=== PATIENT | female | born 2000 | race Caucasian/White ===

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

== ENCOUNTER 2020-01-24 11:59 | Emergency (ER) | payer OTHER ==
[2020-01-24 12:11] VITALS: BP 124/83; RESP 18; TEMP 99.1
--- NOTE | 2020-01-24 13:47 | ED ---
General Adult HPI - General Chief complaint: Skin/Abscess/Foreign Body Stated complaint: back pain Time Seen by Provider: 01/24/20 12:44 Source: patient, family, RN notes reviewed Mode of arrival: ambulatory Limitations: no limitations - History of Present Illness Initial comments: 19-year-old female presents to the emergency room for possible abscess of the left side of the buttock. Patient states it is painful to apply pressure to. She denies fevers or chills. Patient reports her uncle has had a history of pilonidal cyst. Patient denies any history herself.Patient has no other complaints at this time including shortness of breath, chest pain, abdominal pain, nausea or vomiting, headache, or visual changes. - Related Data Home Medications Medication Instructions Recorded Confirmed Acetaminophen Tab [Tylenol Tab] 1,000 mg PO Q6HR PRN 01/24/20 01/24/20 Previous Rx's Medication Instructions Recorded Sulfamethox-Tmp 800-160Mg [Bactrim 1 tab PO Q12HR #20 tab 01/24/20 DS 800-160 mg] Allergies Allergy/AdvReac Type Severity Reaction Status Date / Time azithromycin Allergy Rash/Hives Verified 01/24/20 13:41 clindamycin Allergy Rash/Hives Verified 01/24/20 13:41 doxycycline Allergy Rash/Hives Verified 01/24/20 13:41 Penicillins Allergy Rash/Hives Verified 01/24/20 13:41 Review of Systems ROS Statement: Those systems with pertinent positive or pertinent negative responses have been documented in the HPI. ROS Other: All systems not noted in ROS Statement are negative. Past Medical History Past Medical History: No Reported History Past Surgical History: No Surgical Hx Reported Smoking Status: Never smoker Past Alcohol Use History: None Reported Past Drug Use History: None Reported General Exam Limitations: no limitations General appearance: alert, in no apparent distress Head exam: Present: atraumatic, normocephalic, normal inspection Eye exam: Present: normal appearance, PERRL, EOMI. Absent: scleral icterus, conjunctival injection, periorbital swelling ENT exam: Present: normal exam, mucous membranes moist Neck exam: Present: normal inspection, full ROM. Absent: tenderness, meningismus, lymphadenopathy Respiratory exam: Present: normal lung sounds bilaterally. Absent: respiratory distress, wheezes, rales, rhonchi, stridor Cardiovascular Exam: Present: regular rate, normal rhythm, normal heart sounds. Absent: systolic murmur, diastolic murmur, rubs, gallop, clicks GI/Abdominal exam: Present: soft, normal bowel sounds. Absent: distended, tenderness, guarding, rebound, rigid Rectal exam: Present: other (Patient has a small erythematous area of induration noted to the left superior gluteal cleft.) Course Vital Signs 01/24/20 12:07 Temperature 99.1 F Pulse Rate 121 H Respiratory 18 Rate Blood Pressure 124/83 O2 Sat by Pulse 97 Oximetry Procedures - Incision & Drainage Consent Obtained: verbal consent Site: buttock Needle Aspiration Performed?: Yes I&D Drainage Obtained: Blood Patient Tolerated Procedure: well, no complications Medical Decision Making - Medical Decision Making Physical exam revealed an small 1 cm x 1 cm indurated area of erythema on the superior left gluteal cleft. There is no fluctuance at this time. I discussed it was possible that abscess is too early to drain however patient is agreeable to attempt drainage. I did have a timeout performed and consent signed. The area was cleaned with iodine. 18-gauge needle was used to incise the area. There is no purulent drainage. Patient was started on Bactrim as she has several other ALLERGIES. She denies chance of . She will return here for any worsening symptoms which were discussed in depth with her. In the meantime she will use warm compresses which was discussed. Disposition Clinical Impression: Abscess Disposition: HOME SELF-CARE Condition: Good Instructions (If sedation given, give patient instructions): Abscess (ED) Additional Instructions: Please apply warm compresses for 20 minutes every hour. Taken antibiotic as directed. Follow-up with your doctor for recheck. If you have worsening symptoms return here to the emergency room. Prescriptions: Sulfamethox-Tmp 800-160Mg [Bactrim DS 800-160 mg] 1 tab PO Q12HR #20 tab Is patient prescribed a controlled substance at d/c from ED?: No Referrals: Ratna Calzada MD [REFERRING] - 1-2 days Time of Disposition: 13:46
[2020-01-24 14:31] VITALS: PULSE 96
== END 2020-01-24 14:00 | disposition home or self-care (01) ==
LOC: EC 11:59
DX: L02.31 Cutaneous abscess of buttock (principal); Z88.0 Allergy status to penicillin; Z88.1 Allergy status to other antibiotic agents
CPT/HCPCS: 10060; 99283

== ENCOUNTER 2020-01-26 13:09 | Emergency (ER) | payer OTHER ==
[2020-01-26] MEDS ORDERED: LIDOCAINE 1% INJ 10MG/ML (20 ML MDV) SQ STA (13:57)
--- NOTE | 2020-01-26 14:26 | ED ---
General Adult HPI - General Chief complaint: Skin/Abscess/Foreign Body Stated complaint: Revisit Back Abscess Time Seen by Provider: 01/26/20 13:19 Source: patient, RN notes reviewed, old records reviewed Mode of arrival: ambulatory Limitations: no limitations - History of Present Illness Initial comments: 19-year-old female patient the ED for evaluation of possible abscess to pilonidal region. Patient reports that she's been having pain for the last 3 days. Patient was in this emergency department 2 days ago and a drainage was attempted however is no purulent drainage obtained. Patient reports that since then she has been having worsening discomfort with sitting. Denies any fevers. Denies any chance of . Denies any other acute complaints. Patient has been doing warm compresses. Systemic: Pt denies fatigue, fever/chills, rash. Pt denies weakness, night sweats, weight loss. Neuro: Pt denies headache, visual disturbances, syncope or pre-syncope. HEENT: Pt denies ocular discharge or irritation, otalgia, rhinorrhea, pharyngitis or notable lymphadenopathy. Cardiopulmonary: Pt denies chest pain, SOB, heart palpitations, dyspnea on exertion. Abdominal/GI: Pt denies abdominal pain, n/v/d. : Pt denies dysuria, burning w/ urination, frequency/urgency. Denies new onset urinary or bowel incontinence. MSK: Pt denies myalgia, loss of strength or function in extremities. Neuro: Pt denies new onset weakness, paresthesias. - Related Data Home Medications Medication Instructions Recorded Confirmed Acetaminophen Tab [Tylenol Tab] 1,000 mg PO Q6HR PRN 01/24/20 01/24/20 Previous Rx's Medication Instructions Recorded Fluconazole [Diflucan] 150 mg PO DAILY #1 tab 01/24/20 Sulfamethox-Tmp 800-160Mg [Bactrim 1 tab PO Q12HR #20 tab 01/24/20 DS 800-160 mg] Allergies Allergy/AdvReac Type Severity Reaction Status Date / Time azithromycin Allergy Rash/Hives Verified 01/26/20 13:14 doxycycline Allergy Rash/Hives Verified 01/26/20 13:14 Penicillins Allergy Rash/Hives Verified 01/26/20 13:14 Review of Systems ROS Statement: Those systems with pertinent positive or pertinent negative responses have been documented in the HPI. ROS Other: All systems not noted in ROS Statement are negative. Past Medical History Past Medical History: No Reported History History of Any Multi-Drug Resistant Organisms: None Reported Past Surgical History: No Surgical Hx Reported Past Psychological History: No Psychological Hx Reported Smoking Status: Never smoker Past Alcohol Use History: None Reported Past Drug Use History: None Reported General Exam - General Exam Comments Initial Comments: Constitutional: NAD, AOX3, Pt has pleasant affect. HEENT: NC/AT, trachea midline, neck supple, no lymphadenopathy. External ears appear normal, without discharge. Mucous membranes moist. Eyes PERRLA, EOM intact. There is no scleral icterus. No pallor noted. Cardiopulmonary: RRR, no murmurs, rubs or gallops, no JVD noted. Lungs CTAB in anterior and posterior castellon. No peripheral edema. Abdominal exam: Abdomen soft and non-distended. Abdomen non-tender to palpation in all 4 quadrants. Bowel sounds active in LLQ. No hepatosplenomegaly. No ecchymosis Neuro: CN II-XII grossly intact. No nuchal rigidity. MSK: 2x2 cm fluctuant abscess pilonidal region, at the superior glutral cleft left sided. Area with cleaned, incision and drainage displayed purulent drainage. No streaking, no rectal involvement. Chaperogned by ANALILIA Mendoza. Limitations: no limitations Course Vital Signs 01/26/20 13:10 Temperature 98.6 F Pulse Rate 129 H Respiratory 18 Rate Blood Pressure 113/79 O2 Sat by Pulse 98 Oximetry Procedures - [place] Protocol (Time Out) Procedure Performed:: Incision and Drainage Performing Provider: Cornell Clark Nurse: Eloy Judd Timeout Date: 01/26/20 (14:09) Patient Identification (2 identifiers required): Verbal, Arm Band, Name, Birthdate, Medical Record Number Patient/Legal Digital Archivist has Confirmed: Identity, Site, Procedure, Consent Site: coccyx Site Marked: Yes Site Verified With Patient/Guardian: Yes - Incision & Drainage Consent Obtained: verbal consent Indication: pilonidal abscess Size (cm): 2 Anesthetic Used: lidocaine 1% Amount (mLs): 2 I&D Cleaning Method: Chloroprep Sterile Field Used?: Yes Scalpel Used: #11 Irrigation Performed?: Yes I&D Drainage Obtained: Pus Culture Obtained?: Yes Patient Tolerated Procedure: well Medical Decision Making - Medical Decision Making 19-year-old female patient the ED for evaluation of possible abscess to pilonid al region. Patient reports that she's been having pain for the last 3 days. Patient was in this emergency department 2 days ago and a drainage was attempted however is no purulent drainage obtained. Patient reports that since then she has been having worsening discomfort with sitting. Denies any fevers. Denies any chance of . Denies any other acute complaints. Patient has been doing warm compresses. Pt VSS, afebrile. Physical exam displayed: 2x2 cm fluctuant abscess pilonidal region, at the superior glutral cleft left sided. Area with cleaned, incision and drainage displayed purulent drainage. Consent form and Tylenol were completed. Risks and benefits were discussed. Patient will continue on the Bactrim pending culture and will return to any worsening symptoms. Case discussed with Dr. Tillman. Disposition Clinical Impression: Pilonidal abscess Disposition: HOME SELF-CARE Condition: Stable Instructions (If sedation given, give patient instructions): Abscess (ED), Abscess Incision and Drainage (DC) Additional Instructions: Follow up with PCP tomorrow. Continue taking antibiotics. return to ED with any worsening symptoms. I will also provide you a surgical consult, Dr. Blackmon. Is patient prescribed a controlled substance at d/c from ED?: No Referrals: None,Stated [Primary Care Provider] - 1-2 days Isai Stearns [STAFF PHYSICIAN] - 1-2 days Ratna Calzada MD [REFERRING] - 1-2 days Candi Blackmon MD [STAFF PHYSICIAN] - 1-2 days
[2020-01-26 14:31] VITALS: BP 120/78; PULSE 98; RESP 20; TEMP 99
[2020-01-26] MEDS ORDERED: ACET/COD 300 MG/30 MG STARTER PACK 6 TAB BTL PO STA (14:36)
== END 2020-01-26 14:56 | disposition home or self-care (01) ==
LOC: EC 13:09
DX: L05.01 Pilonidal cyst with abscess (principal); Z88.0 Allergy status to penicillin; Z88.1 Allergy status to other antibiotic agents
CPT/HCPCS: 87070; 87205; 99283; 10080; J2001

== ENCOUNTER → 2020-04-06 | Outpatient (CLI) | payer OTHER ==
--- NOTE | 2020-04-06 17:30 | US ---
EXAMINATION TYPE: US pelvis complete transvag DATE OF EXAM: 04/06/2020 COMPARISON: NONE CLINICAL HISTORY: 19-year-old female N92.0 Excessive and frequent menstruation with reg. The cycles for months TECHNIQUE: TA/TV. Transabdominal sonographic images of the pelvis were acquired. Transvaginal sono graphic images were medically necessary to better assess the following anatomy: all structures Date of LMP: 03/29/2020 FINDINGS: EXAM MEASUREMENTS: Uterus: 6.7 x 3.8 x 4.4 cm Endometrial Stripe: 0.5 cm Right Ovary: 2.9 x 1.7 x 2.2 cm for a volume of 5.7 mL Left Ovary: 2.4 x 1.3 x 1.4 cm for a volume of 2.3 mL 1. Uterus: Anteverted and otherwise wnl 2. Endometrium: wnl 3. Right Ovary: Numerous small follicles, at least 14 are measured on one image. 4. Left Ovary: With follicular change. 5. Bilateral Adnexa: wnl 6. Posterior cul-de-sac: Small amount of fluid. IMPRESSION: 1. Follicular change in both ovaries. Neither ovary is particularly large in size but the right ovary has numerous small follicles, at least 14 measured on one image. Clinically correlate. 2. Small amount of cul-de-sac free fluid likely physiologic.
== END | disposition home or self-care (01) ==
LOC: RADUSWWP 15:34
PROVIDERS: ATTEND Obstetrics & Gynecology
DX: N83.8 Other noninflammatory disorders of ovary, fallopian tube and broad ligament (principal)
CPT/HCPCS: 76830; 76856

== ENCOUNTER 2020-12-27 01:59 | Emergency (ER) | payer OTHER ==
[2020-12-27 02:12] VITALS: TEMP 98.3
[2020-12-27] MEDS ORDERED: SODIUM CHLORIDE 0.9% 1,000 ML IV STA (02:18)
--- NOTE | 2020-12-27 02:19 | ED ---
Arrhythmia/Palpitations HPI - General Chief Complaint: Arrhythmia/Palpitations Stated Complaint: Heart palpitations Time Seen by Provider: 12/27/20 02:18 Source: patient, family, RN notes reviewed, old records reviewed Mode of arrival: ambulatory Limitations: no limitations - History of Present Illness Initial Comments: 's is a 20-year-old female to the emergency department ton[place]. Patient presents today for evaluation of elevated heart rate states she has history of arrhythmia also having palpitations. Heart beating in her chest. Chest pain. Patient is also having some eye pain to took some naproxen which did seem to help. Otherwise no recent travel history sick contacts. No change in medications denies drug or alcohol abuse patient does have history of POTS MD Complaint: rapid heart beat, "heart racing", palpitations -: hour(s) Context: occurred during rest Associated Symptoms: chest pain, nausea/vomiting, anxiety Treatments Prior to Arrival: other (none) - Related Data Home Medications Medication Instructions Recorded Confirmed Acetaminophen Tab [Tylenol Tab] 1,000 mg PO Q6HR PRN 01/24/20 01/24/20 Previous Rx's Medication Instructions Recorded Fluconazole [Diflucan] 150 mg PO DAILY #1 tab 01/24/20 Sulfamethox-Tmp 800-160Mg [Bactrim 1 tab PO Q12HR #20 tab 01/24/20 DS 800-160 mg] Allergies Allergy/AdvReac Type Severity Reaction Status Date / Time azithromycin Allergy Rash/Hives Verified 12/27/20 02:12 doxycycline Allergy Rash/Hives Verified 12/27/20 02:12 Penicillins Allergy Rash/Hives Verified 12/27/20 02:12 Review of Systems ROS Statement: Those systems with pertinent positive or pertinent negative responses have been documented in the HPI. ROS Other: All systems not noted in ROS Statement are negative. Past Medical History Past Medical History: Hyperlipidemia Additional Past Medical History / Comment(s): PCOS, heart palpitations, PTSD History of Any Multi-Drug Resistant Organisms: None Reported Past Surgical History: No Surgical Hx Reported Past Psychological History: Anxiety, PTSD Smoking Status: Vaper Past Alcohol Use History: Occasional Past Drug Use History: None Reported General Exam Limitations: no limitations General appearance: alert, in no apparent distress Head exam: Present: atraumatic, normocephalic, normal inspection Eye exam: Present: normal appearance, PERRL, EOMI. Absent: scleral icterus, conjunctival injection, periorbital swelling ENT exam: Present: normal exam, mucous membranes moist Neck exam: Present: normal inspection. Absent: tenderness, meningismus, lymphadenopathy Respiratory exam: Present: normal lung sounds bilaterally. Absent: respiratory distress, wheezes, rales, rhonchi, stridor Cardiovascular Exam: Present: regular rate, normal rhythm, normal heart sounds. Absent: systolic murmur, diastolic murmur, rubs, gallop, clicks GI/Abdominal exam: Present: soft, normal bowel sounds. Absent: distended, tenderness, guarding, rebound, rigid Extremities exam: Present: normal inspection, full ROM, normal capillary refill. Absent: tenderness, pedal edema, joint swelling, calf tenderness Back exam: Present: normal inspection Neurological exam: Present: alert, oriented X3, CN II-XII intact Psychiatric exam: Present: normal affect, normal mood Skin exam: Present: warm, dry, intact, normal color. Absent: rash Course Vital Signs 12/27/20 02:07 Temperature 98.3 F Pulse Rate 95 Respiratory 22 Rate Blood Pressure 121/82 O2 Sat by Pulse 97 Oximetry - Reevaluation(s) Reevaluation #1: 12/27/20 02:19 Medical record is reviewed Reevaluation #2: 12/27/20 04:21 Patient has no significant acute findings here in the ER and informed of results Reevaluation #3: 12/27/20 04:21 Patient symptoms are improved here in the ER EKG Findings - EKG Comments: EKG Findings:: EKG is sinus rhythm 79 CO 164 QRS 90 QTC 408 Medical Decision Making - Medical Decision Making 20-year-old female to the emergency department with palpitations and arrhythmia, no acute findings found here in the ER will monitor is normal patient can be discharged home - Lab Data Result diagrams: 12/27/20 02:59 12/27/20 02:59 Lab Results 12/27/20 12/27/20 12/27/20 Range/Units 02:59 02:59 02:59 WBC 3.5 L (4.0-11.0) k/uL RBC 4.59 (3.80-5.40) m/uL Hgb 13.7 (11.4-16.0) gm/dL Hct 39.3 (34.0-46.0) % MCV 85.6 (80.0-100.0) fL MCH 29.9 (25.0-35.0) pg MCHC 34.9 (31.0-37.0) g/dL RDW 12.4 (11.5-15.5) % Plt Count 196 (150-450) k/uL MPV 9.6 Neutrophils % 50 % Lymphocytes % 35 % Monocytes % 11 % Eosinophils % 1 % Basophils % 1 % Neutrophils # 1.7 (1.3-7.7) k/uL Lymphocytes # 1.2 (1.0-4.8) k/uL Monocytes # 0.4 (0-1.0) k/uL Eosinophils # 0.0 (0-0.7) k/uL Basophils # 0.0 (0-0.2) k/uL PT 10.7 (9.0-12.0) sec INR 1.0 (<1.2) APTT 28.5 (22.0-30.0) sec D-Dimer 1.15 H (<0.60) mg/L FEU Sodium 136 L (137-145) mmol/L Potassium 3.9 (3.5-5.1) mmol/L Chloride 104 (98-107) mmol/L Carbon Dioxide 21 L (22-30) mmol/L Anion Gap 11 mmol/L BUN 7 (7-17) mg/dL Creatinine 0.50 L (0.52-1.04) mg/dL Est GFR (CKD-EPI)AfAm >90 (>60 ml/min/1.73 sqM) Est GFR (CKD-EPI)NonAf >90 (>60 ml/min/1.73 sqM) Glucose 92 (74-99) mg/dL Plasma Lactic Acid Shadi (0.7-2.0) mmol/L Calcium 9.4 (8.4-10.2) mg/dL Phosphorus 3.7 (2.5-4.5) mg/dL Magnesium 1.8 (1.6-2.3) mg/dL Total Bilirubin 0.4 (0.2-1.3) mg/dL AST 23 (14-36) U/L ALT 13 (4-34) U/L Alkaline Phosphatase 96 (38-126) U/L Troponin I (0.000-0.034) ng/mL NT-Pro-B Natriuret Pep pg/mL Total Protein 7.4 (6.3-8.2) g/dL Albumin 4.5 (3.5-5.0) g/dL TSH 1.400 (0.465-4.680) mIU/L 12/27/20 12/27/20 12/27/20 Range/Units 02:59 02:59 02:59 WBC (4.0-11.0) k/uL RBC (3.80-5.40) m/uL Hgb (11.4-16.0) gm/dL Hct (34.0-46.0) % MCV (80.0-100.0) fL MCH (25.0-35.0) pg MCHC (31.0-37.0) g/dL RDW (11.5-15.5) % Plt Count (150-450) k/uL MPV Neutrophils % % Lymphocytes % % Monocytes % % Eosinophils % % Basophils % % Neutrophils # (1.3-7.7) k/uL Lymphocytes # (1.0-4.8) k/uL Monocytes # (0-1.0) k/uL Eosinophils # (0-0.7) k/uL Basophils # (0-0.2) k/uL PT (9.0-12.0) sec INR (<1.2) APTT (22.0-30.0) sec D-Dimer (<0.60) mg/L FEU Sodium (137-145) mmol/L Potassium (3.5-5.1) mmol/L Chloride (98-107) mmol/L Carbon Dioxide (22-30) mmol/L Anion Gap mmol/L BUN (7-17) mg/dL Creatinine (0.52-1.04) mg/dL Est GFR (CKD-EPI)AfAm (>60 ml/min/1.73 sqM) Est GFR (CKD-EPI)NonAf (>60 ml/min/1.73 sqM) Glucose (74-99) mg/dL Plasma Lactic Acid Shadi 0.6 L (0.7-2.0) mmol/L Calcium (8.4-10.2) mg/dL Phosphorus (2.5-4.5) mg/dL Magnesium (1.6-2.3) mg/dL Total Bilirubin (0.2-1.3) mg/dL AST (14-36) U/L ALT (4-34) U/L Alkaline Phosphatase (38-126) U/L Troponin I <0.012 (0.000-0.034) ng/mL NT-Pro-B Natriuret Pep 35 pg/mL Total Protein (6.3-8.2) g/dL Albumin (3.5-5.0) g/dL TSH (0.465-4.680) mIU/L - Radiology Data Radiology results: report reviewed (CT angio chest negative for acute disease), image reviewed Disposition Clinical Impression: Palpitations Disposition: HOME SELF-CARE Condition: Good Instructions (If sedation given, give patient instructions): Heart Palpitations (ED) Is patient prescribed a controlled substance at d/c from ED?: No Referrals: None,Stated [Primary Care Provider] - 1-2 days
[2020-12-27 03:11] LABS: Basophils % (A) 1 %; Eosinophils % (A) 1 %; HCT 39.3 % (34.0-46.0); HGB 13.7 gm/dL (11.4-16.0); Lymphocytes # (A) 1.2 k/uL (1.0-4.8); Lymphocytes % (A) 35 %; MCH 29.9 pg (25.0-35.0); MCHC 34.9 g/dL (31.0-37.0); MCV 85.6 fL (80.0-100.0); Mean Platelet Volume 9.6; Monocytes # (A) 0.4 k/uL (0-1.0); Monocytes % (A) 11 %; Neutrophils # (A) 1.7 k/uL (1.3-7.7); Neutrophils % (A) 50 %; Platelet Count 196 k/uL (150-450); RBC 4.59 m/uL (3.80-5.40); RDW 12.4 % (11.5-15.5); WBC 3.5 k/uL (4.0-11.0)
[2020-12-27] MEDS ORDERED: ONDANSETRON 4 MG/2 ML VIAL IVP STA (03:14)
[2020-12-27 03:18] LABS: ALT 13 U/L (4-34); AST 23 U/L (14-36); African American GFR (CKD) >90 (>60 ml/min/1.73 sqM); Albumin 4.5 g/dL (3.5-5.0); Alkaline Phosphatase 96 U/L (38-126); Anion Gap 11 mmol/L; Blood Urea Nitrogen 7 mg/dL (7-17); Calcium 9.4 mg/dL (8.4-10.2); Carbon Dioxide 21 mmol/L (22-30); Chloride 104 mmol/L (98-107); Glucose 92 mg/dL (74-99); Magnesium 1.8 mg/dL (1.6-2.3); Non-African American GFR(CKD) >90 (>60 ml/min/1.73 sqM); Phosphorus 3.7 mg/dL (2.5-4.5); Potassium 3.9 mmol/L (3.5-5.1); Sodium 136 mmol/L (137-145); Total Bilirubin 0.4 mg/dL (0.2-1.3); Total Protein 7.4 g/dL (6.3-8.2)
[2020-12-27 03:24] LABS: Partial Thromboplastin Time 28.5 sec (22.0-30.0); Prothrombin Time 10.7 sec (9.0-12.0)
--- NOTE | 2020-12-27 04:18 | CT ---
EXAMINATION TYPE: CT angio chest DATE OF EXAM: 12/27/2020 COMPARISON: None HISTORY: chest pain. no prior on PACS. CT DLP: 430.3 mGycm Automated exposure control for dose reduction was used. CONTRAST: Performed with IV Contrast, patient injected with 75ml mL of Isovue 370. Images obtained from the thoracic inlet to the diaphragm with IV contrast. There are 3-D post process ed images The lungs are clear of infiltrate. There is no evidence of a pulmonary mass. There is no pleural effu vinod. There is no pericardial effusion. Heart size is normal. There are no hilar masses. There is no mediastinal adenopathy. Thoracic aorta i s intact. There is no aneurysm or dissection. There is normal contrast opacification of the pulmonary arteries. There are no filling defects. Thoracic vertebra show normal spacing and alignment. Posterior elements are intact. Sternum is intact . The ribs appear intact. There is 4 cm area of increased density in the lateral right lobe of the li jose that is probably a hemangioma. IMPRESSION: No evidence of pulmonary embolism. Probable hemangioma in the lateral right lobe of the liver.
[2020-12-27 04:58] VITALS: BP 127/80; PULSE 84; RESP 16
== END 2020-12-27 05:07 | disposition home or self-care (01) ==
LOC: EC 01:59
DX: R00.2 Palpitations (principal); E78.5 Hyperlipidemia, unspecified; F17.290 Nicotine dependence, other tobacco product, uncomplicated; Z88.0 Allergy status to penicillin
CPT/HCPCS: 93005; 85379; 83880; 80053; 83605; 83735; 84100; 84443; 84484; 85025; 85610; 85730; 71275; 96374; 96361 ×2; 99285; J2405; Q9967

== ENCOUNTER 2021-04-17 17:46 | Emergency (ER) | payer OTHER ==
[2021-04-17 17:56] VITALS: BP 111/69; PULSE 67; RESP 16; TEMP 98.7
[2021-04-17] MEDS ORDERED: IBUPROFEN 800 MG TAB PO STA (18:06)
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
--- NOTE | 2021-04-17 19:36 | XR ---
EXAMINATION TYPE: XR wrist complete LT DATE OF EXAM: 04/17/2021 COMPARISON: NONE HISTORY: 20 years Female. STUDY INDICATION GIVEN: pain . TECHNIQUE: 4 radiographs of the left wrist IMPRESSION: No acute osseous or articular abnormalities appreciated. Normal wrist and hand alignment. No significant soft tissue abnormalities appreciated.
== END 2021-04-17 19:16 | disposition home or self-care (01) ==
LOC: EC 17:46
DX: S63.92XA Sprain of unspecified part of left wrist and hand, initial encounter (principal); E78.5 Hyperlipidemia, unspecified; F17.290 Nicotine dependence, other tobacco product, uncomplicated; Y04.0XXA Assault by unarmed brawl or fight, initial encounter; Y92.129 Unspecified place in nursing home as the place of occurrence of the external cause; Y99.0 Civilian activity done for income or pay
CPT/HCPCS: 99284

== ENCOUNTER 2022-10-31 09:48 | Emergency (ER) | payer OTHER ==
[2022-10-31 09:55] VITALS: PULSE 85; RESP 18
--- NOTE | 2022-10-31 10:15 | ED ---
Arrhythmia/Palpitations HPI - General Chief Complaint: Arrhythmia/Palpitations Stated Complaint: heart palpitations Time Seen by Provider: 10/31/22 10:05 Source: patient, RN notes reviewed Mode of arrival: ambulatory Limitations: no limitations - History of Present Illness Initial Comments: 22-year-old female with past medical history significant for pots syndrome presents to the emergency department with a chief complaint of palpitations. Patient reports that she usually wakes up with palpitations, nausea and a slight headache that will usually resolve on its own in the morning. She reports she felt this way when she woke up however her symptoms have been persistent. She reports that she was standing at work when she felt like she was going to pass out. Patient reports that she did not eat anything yet this morning. She denies excessive caffeine intake. She reports that she is headache and mild nausea. Denies fever, cough, nausea, vomiting, melena. He, shortness of breath, dyspnea, chest pain. - Related Data Home Medications Medication Instructions Recorded Confirmed Ibuprofen 600 mg PO TID-W/MEALS PRN 04/17/21 04/17/21 Metoprolol Succinate [Toprol XL] 25 mg PO HS 04/17/21 04/17/21 Previous Rx's Medication Instructions Recorded Ibuprofen [Motrin] 600 mg PO Q8HR PRN #30 tab 04/17/21 Allergies Allergy/AdvReac Type Severity Reaction Status Date / Time avocado Allergy Rash/Hives Verified 10/31/22 09:55 azithromycin Allergy Rash/Hives Verified 10/31/22 09:55 junior Allergy Rash/Hives Verified 10/31/22 09:55 doxycycline Allergy Rash/Hives Verified 10/31/22 09:55 Penicillins Allergy Rash/Hives Verified 10/31/22 09:55 Review of Systems ROS Statement: Those systems with pertinent positive or pertinent negative responses have been documented in the HPI. ROS Other: All systems not noted in ROS Statement are negative. Past Medical History Past Medical History: Hyperlipidemia Additional Past Medical History / Comment(s): PCOS, heart palpitations, PTSD History of Any Multi-Drug Resistant Organisms: None Reported Past Surgical History: No Surgical Hx Reported Past Psychological History: Anxiety, PTSD Smoking Status: Vaper Past Alcohol Use History: Occasional Past Drug Use History: None Reported General Exam - General Exam Comments Initial Comments: General: Alert, in no acute distress Head: atraumatic normocephalic. 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 sent in by a medical professional or institution ([facility], [employer] [facility], urgent care, hospital, or prison...) When possible be specific @ -[No] Did you speak to anyone other than the patient for history (EMS, parent, family, police, friend...)? What history was obtained from this source @ -[No] Did you review nursing and triage notes (agree or disagree)? Why? @ -[I reviewed and agree with nursing and triage notes] Were old charts reviewed (outside hosp., previous admission, EMS record, old EKG, old radiological studies, urgent care reports/EKG's, prison records)? Report findings @ -[No old charts were reviewed] Differential Diagnosis (chest pain, altered mental status, abdominal pain women, abdominal pain men, vaginal bleeding, weakness, fever, dyspnea, syncope, headache, dizziness, GI bleed, back pain, seizure, CVA, palpatations, mental health, musculoskeletal)? @ -[not applicable] EKG interpreted by me (3pts min.). @ -[As above] X-rays interpreted by me (1pt min.). @ -[None done] CT interpreted by me (1pt min.). @ -[None done] U/S interpreted by me (1pt. min.). @ -[None done] What testing was considered but not performed or refused? (CT, X-rays, U/S, labs)? Why? @ -[None] What meds were considered but not given or refused? Why? @ -[None] Did you discuss the management of the patient with other professionals (professionals i.e. DrCarson, PA, [employer] L[employer] TRIMMER, lab, RT, psych nurse, social insurance analyst, director of cardiology, teacher, radio electronics officer, porter sample case)? Give summary @ -[No] Was smoking cessation discussed for >3mins.? @ -[No] Was critical care preformed (if so, how long)? @ -[No] Were there social determinants of health that impacted care today? How? (Homelessness, low income, unemployed, alcoholism, drug addiction, transportation, low edu. Level, literacy, decrease access to med. care, shelter, rehab)? @ -[No] Was there de-escalation of care discussed even if they declined (Discuss DNR or withdrawal of care, Hospice)? DNR status @ -[No] What co-morbidities impacted this encounter? (DM, HTN, Smoking, COPD, CAD, Cancer, CVA, ARF, Chemo, Hep., AIDS, mental health diagnosis, sleep apnea, morbid obesity)? @ -[None] Was patient admitted / discharged? Hospital course, mention meds given and route, prescriptions, significant lab abnormalities, going to OR and other pertinent info. @ Discharged. This is a pleasant 22-year-old female who presents to the emergency department with palpitations. Patient had a thorough history and physical exam performed on the emergency department. Physical exam essentially unremarkable. Heart rate regular rate and rhythm, lungs are to auscultation bilaterally, abdomen soft nontender. Patient had lab work and imaging performed which were essentially unremarkable. I discussed the results in detail the patient verbalized understanding all questions were addressed. She is agreeable with the plan for discharge with recommended close follow-up in 1-2 days. Re turn precautions were discussed at length. Patient discharged in stable condition. Case discussed with ARLETH Carrera who agrees with clinical plan of care. Undiagnosed new problem with uncertain prognosis? @ -[No] Drug Therapy requiring intensive monitoring for toxicity (Heparin, Nitro, Insulin, Cardizem)? @ -[No] Were any procedures done? @ -[No] Diagnosis/symptom? @ - Palpitations Acute, or Chronic, or Acute on Chronic? @ -acute Uncomplicated (without systemic symptoms) or Complicated (systemic symptoms)? @ -Uncomplicated Side effects of treatment? @ -[No] Exacerbation, Progression, or Severe Exacerbation? @ -[No] Poses a threat to life or bodily function? How? (Chest pain, [place], [place], pneumonia, PE, COPD, DKA, ARF, appy, cholecystitis, CVA, Diverticulitis, Homicidal, Suicidal, threat to staff... and all critical care pts) @ -Low likelihood - Lab Data Result diagrams: 10/31/22 10:47 10/31/22 10:47 Lab Results 10/31/22 10/31/22 10/31/22 Range/Units 10:47 10:47 10:47 WBC 4.3 (3.8-10.6) k/uL RBC 4.57 (3.80-5.40) m/uL Hgb 13.6 (11.4-16.0) gm/dL Hct 39.0 (34.0-46.0) % MCV 85.4 (80.0-100.0) fL MCH 29.7 (25.0-35.0) pg MCHC 34.8 (31.0-37.0) g/dL RDW 11.9 (11.5-15.5) % Plt Count 210 (150-450) k/uL MPV 9.1 Neutrophils % 54 % Lymphocytes % 36 % Monocytes % 6 % Eosinophils % 2 % Basophils % 1 % Neutrophils # 2.3 (1.3-7.7) k/uL Lymphocytes # 1.6 (1.0-4.8) k/uL Monocytes # 0.3 (0-1.0) k/uL Eosinophils # 0.1 (0-0.7) k/uL Basophils # 0.0 (0-0.2) k/uL Sodium (137-145) mmol/L Potassium (3.5-5.1) mmol/L Chloride (98-107) mmol/L Carbon Dioxide (22-30) mmol/L Anion Gap mmol/L BUN (7-17) mg/dL Creatinine (0.52-1.04) mg/dL Est GFR (CKD-EPI)AfAm (>60 ml/min/1.73 sqM) Est GFR (CKD-EPI)NonAf (>60 ml/min/1.73 sqM) Glucose (74-99) mg/dL Calcium (8.4-10.2) mg/dL Total Bilirubin (0.2-1.3) mg/dL AST (14-36) U/L ALT (4-34) U/L Alkaline Phosphatase (38-126) U/L Total Protein (6.3-8.2) g/dL Albumin (3.5-5.0) g/dL TSH (0.465-4.680) mIU/L Urine Color Colorless Urine Appearance Clear (Clear) Urine pH 5.5 (5.0-8.0) Ur Specific [place] 1.003 (1.001-1.035) Urine Protein Negative (Negative) Urine Glucose (UA) Negative (Negative) Urine Ketones Negative (Negative) Urine Blood Small H (Negative) Urine Nitrite Negative (Negative) Urine Bilirubin Negative (Negative) Urine Urobilinogen <2.0 (<2.0) mg/dL Ur Leukocyte Esterase Negative (Negative) Urine RBC <1 (0-5) /hpf Urine WBC 2 (0-5) /hpf Ur Squamous Epith Cells 1 (0-4) /hpf Urine HCG, Qual Not Detected (Not Detectd) 10/31/22 Range/Units 10:47 WBC (3.8-10.6) k/uL RBC (3.80-5.40) m/uL Hgb (11.4-16.0) gm/dL Hct (34.0-46.0) % MCV (80.0-100.0) fL MCH (25.0-35.0) pg MCHC (31.0-37.0) g/dL RDW (11.5-15.5) % Plt Count (150-450) k/uL MPV Neutrophils % % Lymphocytes % % Monocytes % % Eosinophils % % Basophils % % Neutrophils # (1.3-7.7) k/uL Lymphocytes # (1.0-4.8) k/uL Monocytes # (0-1.0) k/uL Eosinophils # (0-0.7) k/uL Basophils # (0-0.2) k/uL Sodium 137 (137-145) mmol/L Potassium 4.0 (3.5-5.1) mmol/L Chloride 105 (98-107) mmol/L Carbon Dioxide 24 (22-30) mmol/L Anion Gap 8 mmol/L BUN 4 L (7-17) mg/dL Creatinine 0.55 (0.52-1.04) mg/dL Est GFR (CKD-EPI)AfAm >90 (>60 ml/min/1.73 sqM) Est GFR (CKD-EPI)NonAf >90 (>60 ml/min/1.73 sqM) Glucose 94 (74-99) mg/dL Calcium 9.1 (8.4-10.2) mg/dL Total Bilirubin 0.6 (0.2-1.3) mg/dL AST 18 (14-36) U/L ALT 13 (4-34) U/L Alkaline Phosphatase 64 (38-126) U/L Total Protein 7.1 (6.3-8.2) g/dL Albumin 4.2 (3.5-5.0) g/dL TSH 0.704 (0.465-4.680) mIU/L Urine Color Urine Appearance (Clear) Urine pH (5.0-8.0) Ur Specific [place] (1.001-1.035) Urine Protein (Negative) Urine Glucose (UA) (Negative) Urine Ketones (Negative) Urine Blood (Negative) Urine Nitrite (Negative) Urine Bilirubin (Negative) Urine Urobilinogen (<2.0) mg/dL Ur Leukocyte Esterase (Negative) Urine RBC (0-5) /hpf Urine WBC (0-5) /hpf Ur Squamous Epith Cells (0-4) /hpf Urine HCG, Qual (Not Detectd) Disposition Clinical Impression: Palpitations Disposition: HOME SELF-CARE Condition: Stable Additional Instructions: Please return to the nearest emergency department if fever, shortness of breath, cough, Is patient prescribed a controlled substance at d/c from ED?: No Referrals: Humphrey Cherry [Primary Care Provider] - 1-2 days Forms: Work/School Release Time of Disposition: 12:26
[2022-10-31] MEDS ORDERED: SODIUM CHLORIDE 0.9% 1,000 ML IV ONE (10:23)
[2022-10-31 11:03] LABS: Basophils % (A) 1 %; Eosinophils # (A) 0.1 k/uL (0-0.7); Eosinophils % (A) 2 %; HGB 13.6 gm/dL (11.4-16.0); Lymphocytes # (A) 1.6 k/uL (1.0-4.8); Lymphocytes % (A) 36 %; MCH 29.7 pg (25.0-35.0); MCHC 34.8 g/dL (31.0-37.0); MCV 85.4 fL (80.0-100.0); Mean Platelet Volume 9.1; Monocytes # (A) 0.3 k/uL (0-1.0); Monocytes % (A) 6 %; Neutrophils # (A) 2.3 k/uL (1.3-7.7); Neutrophils % (A) 54 %; Platelet Count 210 k/uL (150-450); RBC 4.57 m/uL (3.80-5.40); RDW 11.9 % (11.5-15.5); WBC 4.3 k/uL (3.8-10.6)
[2022-10-31 11:12] LABS: ALT 13 U/L (4-34); AST 18 U/L (14-36); African American GFR (CKD) >90 (>60 ml/min/1.73 sqM); Albumin 4.2 g/dL (3.5-5.0); Alkaline Phosphatase 64 U/L (38-126); Anion Gap 8 mmol/L; Blood Urea Nitrogen 4 mg/dL (7-17); Calcium 9.1 mg/dL (8.4-10.2); Carbon Dioxide 24 mmol/L (22-30); Chloride 105 mmol/L (98-107); Glucose 94 mg/dL (74-99); Non-African American GFR(CKD) >90 (>60 ml/min/1.73 sqM); Sodium 137 mmol/L (137-145); Total Bilirubin 0.6 mg/dL (0.2-1.3); Total Protein 7.1 g/dL (6.3-8.2)
[2022-10-31 11:22] LABS: Appearance,Urine Clear (Clear); Bilirubin,Urine Negative (Negative); Blood,Urine Small (Negative); Color,Urine Colorless; Glucose,Urine (UA) Negative (Negative); Ketones,Urine Negative (Negative); Leukocyte Esterase,Urine Negative (Negative); Nitrite,Urine Negative (Negative); PH, Urine 5.5 (5.0-8.0); Protein,Urine Negative (Negative); RBC,Urine <1 /hpf (0-5); Specific Gravity,Urine 1.003 (1.001-1.035); Squamous Epithelial Cell,Urine 1 /hpf (0-4); Urobilinogen,Urine <2.0 mg/dL (<2.0); WBC,Urine 2 /hpf (0-5)
[2022-10-31 12:54] VITALS: BP 114/76
[2022-10-31 13:20] VITALS: TEMP 98.1
== END 2022-10-31 13:27 | disposition home or self-care (01) ==
LOC: EC 09:48 → SUPCPDRO 09:48 → EC 13:27
DX: R00.2 Palpitations (principal); F17.290 Nicotine dependence, other tobacco product, uncomplicated; Z88.0 Allergy status to penicillin; Z88.1 Allergy status to other antibiotic agents; Z91.018 Allergy to other foods
CPT/HCPCS: 36415; 80053; 81001; 81025; 84443; 85025; 93005; 96360; 99285

== ENCOUNTER 2023-10-19 07:59 | Day surgery (SDC) | payer BC ==
[2023-10-15 11:34] VITALS: BMI 34.7
[~2023-10-19 07:59] MED LIST: SODIUM CHLORIDE 0.9% 1,000 ML IV SCH
[2023-10-19] MEDS: SODIUM CHLORIDE 0.9% 500 ML 500 ML IV ONE (08:03)
[2023-10-19 08:44] VITALS: BP 102/63; PULSE 66; RESP 16; TEMP 98.7
--- NOTE | 2023-10-19 19:08 | P.EPPROC ---
- EP Procedure Note Electrophysiology Procedure Note: Diagnosis Recurrent presyncope Twelve-lead EKG shows sinus rhythm normal MO narrow QRS normal ST segments normal QT interval No delta waves no epsilon waves Tilt table test per protocol Baseline blood pressure 108/64 mmHg baseline heart rate 58 beats a minute Patient was tilted upright at an angle of 70 degrees per protocol she complained of being dizzy and short of breath. Heart rate in the 70s, blood pressure 130/90 mmHg There was no evidence for neurocardiogenic syncope No evidence for orthostatic intolerance Impression normal twelve-lead EKG No evidence for neurocardiogenic syncope
== END 2023-10-19 10:31 | disposition home or self-care (01) ==
LOC: CATHEP 07:59
PROVIDERS: ATTEND Internal Medicine Clinical Cardiac Electrophysiology
DX: R55 Syncope and collapse (principal); E28.2 Polycystic ovarian syndrome; I47.11 Inappropriate sinus tachycardia, so stated; F17.200 Nicotine dependence, unspecified, uncomplicated; Z79.84 Long term (current) use of oral hypoglycemic drugs; Z79.899 Other long term (current) drug therapy; Z88.1 Allergy status to other antibiotic agents; Z88.0 Allergy status to penicillin; Z88.8 Allergy status to other drugs, medicaments and biological substances
CPT/HCPCS: 84703; 93660

== ENCOUNTER → 2024-07-20 | Outpatient (CLI) | payer BC ==
[2024-07-20 11:30] LABS: Appearance,Urine Clear (Clear); Bilirubin,Urine Negative (Negative); Blood,Urine Negative (Negative); Color,Urine Colorless; Glucose,Urine (UA) Negative (Negative); Ketones,Urine Negative (Negative); Leukocyte Esterase,Urine Negative (Negative); Nitrite,Urine Negative (Negative); Protein,Urine Negative (Negative); Specific Gravity,Urine 1.014 (1.001-1.035); Urobilinogen,Urine <2.0 mg/dL (<2.0)
[2024-07-20 15:37] LABS: ALT 14 U/L (8-44); AST 14 U/L (13-35); Albumin 4.3 g/dL (3.8-4.9); Albumin/Globulin Ratio 1.65 Ratio (1.60-3.17); Alkaline Phosphatase 66 U/L (41-126); BUN/Creat Ratio 15.43 Ratio (12.00-20.00); Blood Urea Nitrogen 10.8 mg/dL (9.0-27.0); C Reactive Protein <0.30 mg/dL (0.00-0.80); Calcium 9.5 mg/dL (8.7-10.3); Carbon Dioxide 23.7 mmol/L (21.6-31.8); Chloride 103 mmol/L (96-109); Globulin 2.6 g/dL (1.6-3.3); Glucose 67 mg/dL (70-110); Potassium 3.8 mmol/L (3.5-5.5); Sodium 139 mmol/L (135-145); Total Bilirubin 0.3 mg/dL (0.3-1.2); Total Protein 6.9 g/dL (6.2-8.2)
[2024-07-20 15:41] LABS: HGB 13.3 g/dL (12.0-15.0); MCH 29.4 pg (27.0-32.0); MCHC 32.4 g/dL (32.0-37.0); MCV 90.5 FL (80.0-97.0); Mean Platelet Volume 11.2 FL (9.5-12.2); NRBC Per 100 WBC 0 X 10*3/uL (0.00-0.01); Platelet Count 277 X 10*3/uL (140-440); RBC 4.53 X 10*6/uL (4.10-5.20); RDW 12.2 % (11.5-14.5)
[2024-07-20 15:42] LABS: Basophils # (A) 0.06 X 10*3/uL (0.00-0.10); Basophils % (A) 0.9 %; Eosinophils # (A) 0.08 X 10*3/uL (0.04-0.35); Eosinophils % (A) 1.2 %; Lymphocytes % (A) 39.7 %; Monocytes # (A) 0.52 X 10*3/uL (0.20-1.00); Monocytes % (A) 7.6 %; Neutrophils # (A) 3.42 X 10*3/uL (1.80-7.70); Neutrophils % (A) 50.3 %
[2024-07-20 16:11] LABS: Erythrocyte Sedimentation Rate 4 mm/Hr (0-20)
[2024-07-20 19:43] LABS: Anti-DNA, DS unit <1.0 IU/mL; DNA Double-Stranded Negative (Negative)
== END | disposition home or self-care (01) ==
LOC: LABWHC1 10:38
PROVIDERS: ATTEND Internal Medicine
DX: M06.9 Rheumatoid arthritis, unspecified (principal); M54.50 Low back pain, unspecified; M25.50 Pain in unspecified joint; R76.8 Other specified abnormal immunological findings in serum; Z79.899 Other long term (current) drug therapy
CPT/HCPCS: 36415; 80053; 81003; 85025; 85652; 86140; 86160; 86225